=== PATIENT | male | born 1970 | race Caucasian/White ===

== ENCOUNTER 2017-12-14 08:37 | Emergency (ER) | payer MEDICAID ==
[~2017-12-14] VITALS: Ht 182.9 cm; Wt 68.5 kg
[2017-12-14 09:52] VITALS: BP 151/107
== END 2017-12-14 10:14 | disposition home or self-care (01) ==
LOC: ER 08:37
DX: I10 Essential (primary) hypertension (principal); F41.9 Anxiety disorder, unspecified; F17.210 Nicotine dependence, cigarettes, uncomplicated; F31.9 Bipolar disorder, unspecified; Z76.0 Encounter for issue of repeat prescription; Z88.2 Allergy status to sulfonamides